=== PATIENT | female | born 1935 | race Two or more races ===

== ENCOUNTER 2017-04-20 08:50 | Day surgery (SDC) | payer OTHER ==
--- NOTE | 2017-04-19 15:02 | PREOPHP ---
DATE OF ADMISSION: 04/20/2017 HISTORY OF PRESENT ILLNESS: This 81-year-old patient is admitted for elective cataract surgery of the right eye. The patient has had decreasing vision over the past 2 years without prior history of eye disease. SYSTEMIC HISTORY: Positive for hypertension and hypercholesteremia. CURRENT MEDICATIONS: Aspirin (discontinued 1 week prior to surgery), isosorbide, and atorvastatin. ALLERGIES: THERE ARE NO KNOWN ALLERGIES. PHYSICAL EXAMINATION: HEENT: Visual acuity best corrected is 2100 in the right eye and 20/80 in the left eye. Slit lamp examination reveals anterior cortical nucleus sclerotic and posterior subcapsular cataract changes greater in the right eye than in the left eye. Applanation tonometry is 17 mmHg in both eyes. Examination of the retina is within normal limits. DIAGNOSIS: Cataract right eye. PLAN: Cataract extraction with lens implant right eye. The risks and alternatives to the surgery have been discussed with the patient, as well as the hope for improvement of visual acuity leading to greater ability to perform activities of daily living. The patient understands this and agrees to proceed with surgery. Dictated By: Joselito Lewis MD /irma/kemal /Document#: [id number]
[2017-04-20] VITALS (7 sets, daily range): BP systolic 112–150; BP diastolic 57–67; PULSE 50–53; RESP 18–23; Ht 160 cm; Wt 76.0 kg
[~2017-04-20] VITALS: Ht 160 cm; Wt 76.0 kg
[2017-04-20] MEDS ORDERED: ONDANSETRON 4 MG INJ IV PRN (09:00)
[2017-04-20] MEDS ORDERED: DIPHENHYDRAMINE 50 MG INJ IV PRN (09:00)
[2017-04-20] MEDS ORDERED: MEPERIDINE 25 MG INJ IV PRN (09:00)
[2017-04-20] MEDS ORDERED: FENTAnyl 50 MCG/ML VIAL IV PRN (09:00)
[2017-04-20] MEDS ORDERED: OXYCODONE/ACETAMINOPHEN (5/325) TAB PO PRN (09:00)
[2017-04-20] MEDS ORDERED: CYCLOPENTOLATE/PHENYLEPH 2 ML OPH OPER SCH (09:30)
[2017-04-20] MEDS ORDERED: CIPROFLOXACIN 0.3% 2.5 ML OPH OPER SCH (09:30)
[2017-04-20] MEDS ORDERED: TROPICAMIDE 1% 3ML OPH OPER SCH (09:30)
[2017-04-20] MEDS ORDERED: DICLOFENAC 0.1% 2.5 ML OPH OPER SCH (09:30)
[2017-04-20] MEDS ORDERED: ATEN-51 PO (09:54)
[2017-04-20] MEDS ORDERED: ASPI-664 PO (09:54)
[2017-04-20] MEDS ORDERED: ATEN50TA PO (09:55)
[2017-04-20] MEDS ORDERED: ISM20 PO (09:56)
[2017-04-20] MEDS ORDERED: ATOR40TA68 PO (09:57)
[2017-04-20] MEDS ORDERED: CARBACHOL 0.01% 1.5 ML OPH INJ ONE (10:06)
[2017-04-20] MEDS ORDERED: GENTAMICIN 80 MG INJ ONE (10:06)
[2017-04-20] MEDS ORDERED: DEXAMETHASONE 4 MG/ML 1 ML INJ ONE (10:06)
[2017-04-20] MEDS ORDERED: EPINEPHrine 1 MG INJ ONE (10:06)
[2017-04-20] MEDS ORDERED: CEFAZOLIN 1 GM INJ ONE (10:06)
[2017-04-20] MEDS ORDERED: LIDOCAINE 4% (MPF) 5 ML INJ ONE (10:06)
[2017-04-20] MEDS ORDERED: PROPOFOL 20 ML ONE (10:52)
[2017-04-20] MEDS ORDERED: FENTAnyl 50 MCG/ML VIAL ONE (10:52)
[2017-04-20] MEDS ORDERED: MIDAZOLAM 1 MG/ML 2 ML INJ ONE (10:52)
[2017-04-20] MEDS ORDERED: DEXAMETHASONE 4 MG/ML 1 ML INJ INJ ONE (11:15)
[2017-04-20] MEDS ORDERED: CARBACHOL 0.01% 1.5 ML OPH INJ IO ONE (11:15)
[2017-04-20] MEDS ORDERED: HYALURONATE/CHONDROITIN 1ML OPH INJ IO ONE (11:15)
[2017-04-20] MEDS ORDERED: CEFAZOLIN 1 GM INJ INJ ONE (11:15)
[2017-04-20] MEDS ORDERED: ONDANSETRON 4 MG INJ ONE (11:25)
--- NOTE | 2017-04-20 11:56 | OPR ---
Date/Time of Note Date/Time of Note DATE: 04/20/17 TIME: 11:55 Operative Report Preoperative Diagnosis cataract od Operation/Procedure Performed cataract surgery od Surgeon: LEVAR MCCURDY MD Anesthesia Type: MAC Estimated Blood Loss: none Transfusion Required: no Specimen: none Grafts/Implants lens implant Complications: no LEVAR MCCURDY MD Apr 20, 2017 11:56
--- NOTE | 2017-04-20 12:24 | OPR ---
DATE OF OPERATION: 04/20/2017 PREOPERATIVE DIAGNOSIS: Cataract, right eye. POSTOPERATIVE DIAGNOSIS: Cataract, right eye. SURGEON: Joselito Lewis MD DESK ASSISTANT: ANESTHESIA: Local standby. ANESTHESIOLOGIST: Dr. Kenyatta Cuevas. OPERATION: Phacoemulsification with posterior chamber intraocular lens implant, * eye. PROCEDURE: The patient was brought to the operating room and placed on the table with an IV in place and the patient attached to an lunchroom monitor. Oxygen was given via face mask. After some intravenous sedation was administered, local anesthesia was given using Xylocaine 2% with epinephrine, mixed with Marcaine 0.5%. This was given in a lid block and retrobulbar injection. The patient was then prepped and draped in the usual sterile manner. A wire lid speculum was inserted between the lids of the right eye. A Superblade was used to enter the anterior chamber at the corneoscleral limbus at the 10:30 o'clock position. A separate incision was made using a 3.0-mm keratome which entered the corneoscleral junction at the 12 o'clock position. Through this 3- mm opening, an irrigating cystotome was introduced into the anterior chamber. The chamber was filled with Viscoat and an anterior capsulotomy was performed. Balanced salt solution was then used for hydrodissection of the lens. A phacoemulsification handpiece was then brought into the field and introduced into the anterior chamber. The lens nucleus was emulsified using a deep groove and cracking the nucleus into quadrants. Following this, each quadrant was aspirated and emulsified at the pupillary margin. After this was completed, the irrigation/aspiration handpiece was brought to the field, introduced into the posterior chamber, and the lens cortical material was removed. When this was completed, additional Viscoat was injected into the anterior and posterior chambers. The 3-mm opening had its internal lips enlarged, and then the posterior chamber intraocular lens measuring 21.0 diopters ([employer], model LI61AO) was then injected into the posterior chamber using the lens injector system. After the leading haptic was introduced into the capsular bag and the lens optic was present in the center of the eye, the injector was removed and the trailing haptic was grasped with non-toothed forceps and introduced into the capsular fold superiorly. A Sinskey hook was then used to rotate the intraocular lens so that the lips were oriented in the horizontal meridian. One 10-0 nylon suture was placed across the wound. Prior to tying, the irrigation/aspiration handpiece was reintroduced into the anterior chamber to remove the Viscoat. Miochol was instilled to constrict the pupil, and then the 10-0 nylon suture was tied. The ends were cut short and then the knot was buried. Then, 0.5 mL of dexamethasone and 0.5 mL of Ancef were injected into the sub-Tenon space in the inferior fornix. Ciloxan drops were then placed on the surface of the eye. The speculum was removed and a patch was applied. The patient then left the operating room in satisfactory condition. Dictated By: Joselito Lewis MD /irma/jim /Document#: [id number]
== END 2017-04-20 13:31 | disposition home or self-care (01) ==
LOC: SDS 08:50
PROVIDERS: ATTEND Ophthalmology
DX: H25.11 Age-related nuclear cataract, right eye (principal); I10 Essential (primary) hypertension; I25.10 Atherosclerotic heart disease of native coronary artery without angina pectoris; E78.5 Hyperlipidemia, unspecified; Z86.73 Personal history of transient ischemic attack (TIA), and cerebral infarction without residual deficits; E78.00 Pure hypercholesterolemia, unspecified
CPT/HCPCS: 66984; J0171; J0690; J1100; J1580; J2250; J2405; J3010; V2632; Z7512; Z7610

== ENCOUNTER 2017-07-20 08:11 | Day surgery (SDC) | payer OTHER ==
--- NOTE | 2017-07-19 11:20 | PREOPHP ---
DATE OF ADMISSION: 07/20/2017 HISTORY OF PRESENT ILLNESS: This 82-year-old patient is admitted for elective cataract surgery of t he left eye. Patient has had progressive deterioration of vision over the past 2 years and 3 months ago underwent cataract surgery of the right eye with a good visual improvement. The patient denies any prior history of eye disease or injury. The systemic history is positive for hypertension and hypercholesterolemia. CURRENT MEDICATIONS: Include: 1. Isosorbide. 2. Atorvastatin. 3. As well as Aspirin (discontinued 1 week prior to surgery). ALLERGIES: THERE ARE NO KNOWN ALLERGIES. PHYSICAL EXAMINATION: Visual acuity with correction is 20/50 in the right eye and 20/70 in the left eye. Slit lamp examination reveals a posterior chamber intraocular lens in appropriate position in the right eye and an anterior cortical nuclear sclerotic and posterior subcapsular cataract in the left eye. Applanation tonometry is 17 mmHg. Examination of the retina is within normal limits. DIAGNOSIS: Cataract, left eye. PLAN: Cataract extraction with lens implant, left eye. The risks and alternatives to the surgery h ave been discussed with the patient as well as the hope for improvement of visual acuity leading to a greater ability to perform activities of daily living. The patient understands this and agrees to proceed with surgery. Dictated By: LEVAR LA/PURVI Conf#: [id number] DID#: [id number]
[~2017-07-20] VITALS: Ht 160 cm; Wt 73.3 kg
[2017-07-20] VITALS (7 sets, daily range): BP systolic 129–156; BP diastolic 70–79; PULSE 56–66; RESP 11–17; Ht 160 cm; Wt 73.3 kg
[~2017-07-20 08:11] MED LIST: ASPI-664 PO; ATEN50TA PO; ATOR40TA68 PO; BROMFENAC SODIUM 1.7 ML OPH DROP OPER SCH; CYCLOPENTOLATE/PHENYLEPH 2 ML OPH OPER SCH; ISM20 PO; MOXIFLOXACIN 0.5% 3 ML OPH OPER SCH; SOD CHLORIDE 0.9% 1,000 ML IV SCH; TROPICAMIDE 1% 3 ML OPH OPER SCH
[2017-07-20] MEDS ORDERED: CARBACHOL 0.01% 1.5 ML OPH INJ ONE (08:29)
[2017-07-20] MEDS ORDERED: LIDOCAINE 4% (MPF) 5 ML INJ ONE ×2 (08:29→08:30)
[2017-07-20] MEDS ORDERED: GENTAMICIN 80 MG INJ ONE (08:29)
[2017-07-20] MEDS ORDERED: DEXAMETHASONE 4 MG/ML 1 ML INJ ONE (08:29)
[2017-07-20] MEDS ORDERED: EPINEPHrine 1 MG INJ ONE (08:29)
[2017-07-20] MEDS ORDERED: CEFAZOLIN 1 GM INJ ONE (08:29)
[2017-07-20] MEDS ORDERED: CHLO25TA13 PO (08:33)
[2017-07-20] MEDS ORDERED: ISM20 PO (08:34)
[2017-07-20] MEDS ORDERED: PROPOFOL 20 ML ONE (10:24)
[2017-07-20] MEDS ORDERED: CARBACHOL 0.01% 1.5 ML OPH INJ IO ONE (10:38)
[2017-07-20] MEDS ORDERED: DEXAMETHASONE 4 MG/ML 1 ML INJ INJ ONE (10:38)
[2017-07-20] MEDS ORDERED: CEFAZOLIN 1 GM INJ INJ ONE (10:38)
[2017-07-20] MEDS ORDERED: MEPERIDINE 25 MG INJ IV PRN (11:00)
[2017-07-20] MEDS ORDERED: MIDAZOLAM 1 MG/ML 2 ML INJ IV PRN (11:00)
[2017-07-20] MEDS ORDERED: EPHEDrine SULFATE 50 MG/5 ML SYG IV PRN (11:00)
[2017-07-20] MEDS ORDERED: FENTAnyl 50 MCG/ML VIAL IV PRN ×3 (11:00)
[2017-07-20] MEDS ORDERED: ONDANSETRON 4 MG INJ IV PRN (11:00)
[2017-07-20] MEDS ORDERED: OXYCODONE/ACETAMINOPHEN (5/325) TAB PO PRN ×2 (11:00)
[2017-07-20] MEDS ORDERED: hydrALAzine 20 MG INJ IV PRN (11:00)
[2017-07-20] MEDS ORDERED: DIPHENHYDRAMINE 50 MG INJ IV PRN (11:00)
[2017-07-20] MEDS ORDERED: METOCLOPRAMIDE 10 MG INJ IV PRN (11:00)
[2017-07-20] MEDS ORDERED: LABETALOL HCL 20MG INJ IV PRN (11:00)
[2017-07-20] MEDS ORDERED: LIDOCAINE 1% (MPF) 30 ML INJ ONE (11:06)
[2017-07-20] MEDS ORDERED: LIDOCAINE 1% (MPF) 10 ML INJ ONE (11:09)
--- NOTE | 2017-07-20 11:32 | SIPON ---
Date/Time of Note Date/Time of Note DATE: 07/20/17 TIME: 11:31 Operative Report Preoperative Diagnosis cataract os Postoperative Diagnosis same Operation/Procedure Performed cataract implant surgery Surgeon see signature line kindergarten teacher assistant none Anesthesia: MAC Estimated blood loss: none Transfusion Required none Specimen none Grafts/Implants posterior chamber lensnone Complications none LEVAR MCCURDY MD Jul 20, 2017 11:32
--- NOTE | 2017-07-20 11:45 | OPR ---
DATE OF OPERATION: 07/20/2017 PREOPERATIVE DIAGNOSIS: Cataract, left eye. POSTOPERATIVE DIAGNOSIS: Cataract, left eye. OPERATION PERFORMED: Cataract extraction with lens implant, left eye. SURGEON: Levar Lewis MD ANESTHESIOLOGIST: Dr. Jackson ANESTHESIA: Local standby. PROCEDURE: The patient was brought to the operating room and placed on the table with an IV in plac e and the patient attached to an monitoring analyst. Oxygen was given via face mask. After some intravenous sedation was administered, local anesthesia was given using Xylocaine 2% with epinephrine, mixed with Marcaine 0.5%. This was given in a lid block and retrobulbar injection. The patient was then prepped and draped in the usual sterile manner. A wire lid speculum was inserted between the lids of the left eye. A Superblade was used to enter th e anterior chamber at the corneoscleral limbus at the 10:30 o'clock position. A separate incision wa s made using a 3.0-mm keratome which entered the corneoscleral junction at the 12 o'clock position. Through this 3-mm opening, an irrigating cystotome was introduced into the anterior chamber. The ely mber was filled with Viscoat and an anterior capsulotomy was performed. Balanced salt solution was t hen used for hydrodissection of the lens. A phacoemulsification handpiece was then brought into the field and introduced into the anterior chamber. The lens nucleus was emulsified using a deep groove and cracking the nucleus into quadrants. Following this, each quadrant was aspirated and emulsified at the pupillary margin. After this was completed, the irrigation/aspiration handpiece was brought to the field, introduced i nto the posterior chamber, and the lens cortical material was removed. When this was completed, julissa tional Provisc was injected into the anterior and posterior chambers. The 3-mm opening had its internal lips enlarged, and then the posterior chamber intraocular lens toni suring 22.0 diopters ([employer] model LI61AO) was then injected into the posterior chamber using the lens injector system. After the leading haptic was introduced into the capsular b ag and the lens optic was present in the center of the eye, the injector was removed and the trailin g haptic was grasped with non-toothed forceps and introduced into the capsular fold superiorly. A Si nskey hook was then used to rotate the intraocular lens so that the lips were oriented in the horizo ntal meridian. One 10-0 nylon suture was placed across the wound. Prior to tying, the irrigation/aspiration handpiece was reintroduced into the anterior chamber to re move the Provisc. Miochol was instilled to constrict the pupil, and then the 10-0 nylon suture was t ied. The ends were cut short and then the knot was buried. Then, 0.5 mL of dexamethasone and 0.5 mL of Ancef were injected into the sub-Tenon space in the infe rior fornix. Ciloxan drops were then placed on the surface of the eye. The speculum was removed and a patch was applied. The patient then left the operating room in satisfactory condition. Dictated By: LEVAR LA/PURVI Conf#: [id number] DID#: [id number]
--- NOTE | 2017-07-20 21:49 | RADRPT ---
Vent Rate: 56 bpm RR Interval: 0 msec PA Interval: 188 msec QRS Duration: 96 msec QT Interval: 480 msec QTC Interval: 463 msec P-R-T [place]: 37 - 17 - -3 degrees Sinus bradycardia Otherwise normal ECG Electronically Signed By: Panfilo Barger [id number]
== END 2017-07-20 12:34 | disposition home or self-care (01) ==
LOC: SUR 08:11 → SDS 08:11 → SUR 12:34
PROVIDERS: ATTEND Ophthalmology
DX: H25.12 Age-related nuclear cataract, left eye (principal); I10 Essential (primary) hypertension; E78.5 Hyperlipidemia, unspecified; Z86.73 Personal history of transient ischemic attack (TIA), and cerebral infarction without residual deficits
CPT/HCPCS: 66984; 93005; J0171; J0690; J1100; J1580; V2632; Z7512; Z7610; J7030